=== PATIENT | female | born 1990 | race Caucasian/White ===

== ENCOUNTER 2025-03-17 11:00 | Outpatient (AMB) | payer BC, SELFPAY ==
--- NOTE | 2025-03-17 11:04 | A.OFFPC_ITS ---
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 Allergies amoxicillin [AMOXICILLIN] Allergy (Unknown, Verified 03/17/25 11:12) liana VAUGHN Medication List - Last Reconciled 03/17/25 by PERLA Monreal No Known Home Meds Tobacco use date assessed: 03/17/25 Dental Screening Dental Screen Date: 03/17/25 Did you have a dental visit in the last 12 months?: Yes Did you have a dental problem in the last 6 months where you did not have access to dental care?: No Was dental information given to patient?: Patient has dentist HPI HPI Comments History of Present Illness Details 35 y/o F with recurrent nasal MRSA, fami ly hx of melanoma (Dad), family hx breast ca (PGM 70's & maternal aunts) Social: , 3 children; Works as [employer] Surgery: None Family hx: Dad prediabetes, Melanoma, Grandparents with HLD and PreDM, MGF dementia & etoh; PGF prostate ca, pacemaker; MGM , needed pacer before Health Maintenance Tdap 2019 Flu Declined Pap 2020 Specialist: PET TRAINER History of Present Illness Here today as a new patient to [facility] and for CPE: c/o of recurrent nasal MRSA. - She experiences episodes of recurrent impetigo on her nose, typically managed with mupirocin cream. Oral medications have been used in more severe cases.. - Reports stable mood with no anxiety or depression. - Optho: eye exam 2 years ago, mild asti gmatism, does not need RX but has PRN Skin: Would like to see Derm, family hx of Melonoma (dad) - Family history is significant for nga noma, breast cancer, prostate cancer, diabetes, and hypercholesterolemia. Dementia and alcoholism are noted on the maternal side. - The patient is currently not on daily vitamin supplementation. - Works in [employer] and [employer] and is a mother to three children. Past Surgical History - No history of surgical procedures. Family History - Father: Melanoma, prediabetes, hyperch olesterolemia. - Maternal grandfather: Dementia, alcoho lism. - Paternal grandfather: Prostate cancer. - Maternal grandmother: Unspecified bloo d disease, multiple maternal aunts with breast cancer, one diagnosed in her 40s, in her 50s. - No known genetic predisposition after testing for breast cancer gene mutations was conducted. Social History - Employment: Profession in [employer]. - Family Status: Mother of three childre n aged four, seven, and nine. - Denies smoking, alcohol, or drug use. Health Maintenance - Tetanus vaccination administered in . - No recent influenza vaccination; last received approximately three or four years ago. - Pap smear history: Last conducted appr oximately three years ago; prior results were negative. - No current vitamin supplementation; di scussion on adding women?s multivitamin. Review of Systems - Skin: Reports recurrent impetigo on nose. - Eyes: Denies vision problems currently , but previously diagnosed with mild astigmatism. - Psychological: Denies anxiety and depr ession. - General: Denies fatigue. - Cardiovascular: Denies chest pain or p alpitations. - Respiratory: Denies shortness of breat h. - Gastrointestinal: Denies nausea or abd ominal pain. - Genitourinary: Denies abnormal changes in menstruation. Physical Exam General: Well developed, well nourished, in no acute distress. Appears stated age. Head: Normocephalic, atraumatic. Eyes: Pupils are equal, round and reactive to light and accommodation. Conjunctivae are clear. Ears: TMs clear AU, EACS WNL. Nose: Patent, without discharge. Recurrent impetigo noted on the nose, starting to get red on the left side. Neck: Supple, no adenopathy or thyromegaly. No swollen lymph nodes noted upon examination. Breast: Edu on SBE. Referral to [facility] for high-risk breast program. Lungs: Clear to auscultation bilaterally. No rales, rhonchi or wheeze noted. Good air flow in all jaramillo. Heart: Regular rate and rhythm. No murmurs, click, rubs or gallops are noted. Abdomen: Bowel sounds present in all quadrants. The abdomen is soft, nontender, with no masses or organomegaly noted. No hernias are noted. : Deferred. Reviewed recommendations for routine PET TRAINER. Active with PET TRAINER for routine women's health. Pulses: Peripheral pulses are equal and palpable bilaterally. Extremities: No clubbing, cyanosis nor edema is noted. Neurologic: Gait and station normal. Cranial Nerves 2-12 intact. Motor strength grossly symmetrical and intact. No sensory loss. Balance normal. Skin: No rashes, ulcers, or lesions noted. Turgor is good. Skin color is good. Hair and nails are without abnormalities. Referral to [facility] due to family history of melanoma. Psych: Normal eye contact, affect and mood appropriate, and normal interactions. Patient is alert and appropriate to context. Mood looks good, no anxiety, no depression. Results - Labs and tests: Routine blood work for anemia, vitamin D, thyroid function, and kidney function was ordered. - No imaging results discussed. Discussion Notes During today?s visit, I discussed with the patient the management of her recurrent nasal MRSA with mupirocin, ensuring refills were prescribed. Additionally, we reviewed her vaccinations and the need for routine health maintenance screenings, including prioritizing dermatology follow-up due to family history of melanoma and discussion on referring to a high-risk breast cancer program. We addressed the importance of annual wellness check-ins and the coordination through the clinic?s portal for efficiency. Consent was reviewed in detail with the patient, emphasizing the need for follow-ups based on her family history and current health status. Assessment and Plan 1. Recurrent Impetigo Managed recurrent impetigo on the nose with mupirocin cream. Mupirocin will be utilized with early onset of symptoms. 2. Nasal Methicillin-Resistant Staphyloc occus Aureus (MRSA) Suspected MRSA will continue to be managed with intranasal mupirocin, given its recurrent nature. 3. High risk Breast - refer to [facility] breast group 4. Refer to derm Patient Instructions - Use mupirocin cream inside your nose a t the onset of symptoms. - Schedule and attend dermatology appoin tments at [facility] due to family history of melanoma. - Referral to high-risk breast cancer marilyn rogers at [facility]. - Perform regular self-breast exams and report any changes. - Complete annual blood work to monitor kidney function, thyroid levels, and screen for diabetes and anemia. - Utilize the patient portal for communi cation with the office. - Take a women?s multivitamin daily. - RTO 1 year CPE, sooner PRN Consent Patient was informed and verbally consented to the use of an ambient scribe for clinic note documentation during this visit. An additional 25 minutes was spent addressing the problem(s) noted at todays visit. This includes time spent before the visit reviewing the chart, time spent during the visit, and time spent after the visit on documentation reviewing laboratory results, diagnostic imaging, medications, performing a medically necessary evaluation, counseling on diagnoses, care coordination, ordering appropriate tests, ordering appropriate medications, review of tests performed by other providers, reporting test results with the patient, communication with other healthcare providers. [facility] Medical History (Updated 03/17/25 @ 11:35 [facility] No pertinent past medical history Surgical History (Updated 03/17/25 @ 11:13 by Marty Olivo MA) No pertinent past surgical history Family History (Updated 03/17/25 @ 11:16 by Marty Olivo MA) Father High cholesterol Diabetes Cancer Paternal Grandmother High cholesterol Breast cancer Maternal Grandfather High cholesterol Substance abuse Dementia Maternal Grandmother Diabetes Paternal Grandfather Diabetes Prostate cancer Social History (Updated 03/17/25 @ 11:12 by Marty Olivo MA) Household Members: Spouse and Children Housing: House Are you a primary critical care clinical nurse specialist to a significant other at home: Yes Do you presently have visiting nurse or other home services: No Alcohol intake: current Alcohol intake frequency: a few times a month Patient Tobacco Use Status: Never used Tobacco e-Cigarette/Vaping Use: Never Used Second Hand Smoke Exposure: No Current occupational status: employed Current occupation: speech language Cognitive needs: No Hearing needs: No Vision needs: No Questionnaire PHQ-9 Over the last 2 weeks, how often have you been bothered by any of the following problems? 1. Little interest or pleasure in doing things: not at all 2. Feeling down, depressed, or hopeless: not at all 3. Trouble falling or staying asleep, or sleeping too much: not at all 4. Feeling tired or having little energy: not at all 5. Poor appetite or overeating: not at all 6. Feeling bad about yourself - or that you are a failure or have let yourself or your family down: not at all 7. Trouble concentrating on things, such as reading the newspaper or watching television: not at all 8. Moving or speaking so slowly that other people could have noticed. Or the opposite - being so fidgety or restless that you have been moving around a lot more than usual: not at all 9. Thoughts that you would be better off or of hurting yourself in some way: not at all Total score: 0 Depression Screening Interpretation: Negative Depression Screening Done: Yes 24194 - PHQ-9 Billing: Yes Source: Developed by Drs. Eric Pena, Padmini Luis, Chan Phillips and colleagues, with an educational evaristo from [employer]. Thrive Questionnaire Date Thrive assessed: 03/17/25 I am a: Patient What is your living situation today?: I have a steady place to live Within the past 12 months, did the food you bought not last and you didn't have the money to get more?: Never true Within the past 12 months, did you worry whether your food would run out before you got money to buy more?: Never true Do you have trouble paying for medicines?: No Do you have trouble getting transportation to medical appointments?: No Do you have trouble paying your heating and electricity bill?: No Do you have trouble taking care of your child, family member or friend?: No Do you have trouble with day-to-day activities such as bathing, preparing meals, shopping, managing finances, etc.?: No Are you currently unemployed and looking for a job?: No Are you interested in more education?: Yes Please select the resources that you would like help with: None Currently or been in a relationship where the following occur: No concerns reported THRIVE Score: 0 AUDIT C Alcohol Use Questionnaire (AUDIT-C) 1. How often do you have a drink containing alcohol?: 2-4 times a month 2. How many drinks containing alcohol do you have on a typical day when you are drinking?: 3 or 4 3. How often do you have six or more drinks on one occasion?: Never Total Score: 3 Score Reviewed/Action Taken: Yes OVI-7 AMB Questionnaire OVI-7 Date OVI - 7 assessed: 03/17/25 Feeling nervous, anxious, or on edge: 0 = Not at all Not being able to stop or control worryin = Not at all Worrying too much about different things: 0 = Not at all Trouble relaxin = Not at all Being so restless that it is hard to sit still: 0 = Not at all Becoming easily annoyed or irritable: 0 = Not at all Feeling afraid as if something awful might happen: 0 = Not at all Total OVI-7 score (0-4 normal; 5-9 mild; 10-14 moderate; 15-21 severe): 0 Source: Developed by Drs. Eric Pena, Pdamini Luis, Chan Phillips and colleagues, with an educational evaristo from [employer]. OVI-7 Assessment Billing OVI-7 Assessment Tool: OVI-7 Assessment 64639 Physical exam (Primary Care) Vital Signs: Last Vital Signs Temp 97.8 F 03/17/25 11:08 Pulse 72 03/17/25 11:08 Resp 12 03/17/25 11:08 BP 110/70 03/17/25 11:08 Pulse Ox 99 03/17/25 11:08 Oxygen Delivery Method Room Air 03/17/25 11:08 BMI result Body Mass Index 29.2 Tobacco/Smoking Status: Tobacco use Status Tobacco use date assessed 03/17/25 03/17/25 11:10 Patient Tobacco Use Status Never used Tobacco 03/17/25 11:12 e-Cigarette/Vaping Use Never Used 03/17/25 11:12 PHQ-9: PHQ-9 Score PHQ-9: Total score 0 03/17/25 11:16 Depression Screening Interpretation: Negative Thrive Assessment: Date of Thrive Assessment Date Thrive assessed 03/17/25 03/17/25 11:04 Currently or been in a relationship where the following occur: No concerns reported Coding Level of Care Code Est Pt Level 3 (13185) New Pt Prev Care 18-39yr(30701 Diagnoses Encounter for general adult medical examination with abnormal findings Z00.01 Family history of melanoma Z80.8 Family history of breast cancer Z80.3 Laboratory exam ordered as part of routine general medical examination Z00.00 Encounter to establish care Z76.89 Additional Codes OVI-7 Assessment Billing - OVI-7 Assessment Tool: OVI-7 Assessment 34902 ([id number]) PHQ-9 - 33637 - PHQ-9 Billing: Yes ([id number]) Assessment & Plan Assessment & Plan (1) Encounter for general adult medical examination with abnormal findings: Onset Date: ~02/2025 Code(s): Z00.01 - Encounter for general adult medical examination with abnormal findings Category: Medical (2) Family history of melanoma: Comment: Dad Code(s): Z80.8 - Family history of malignant neoplasm of other organs or systems Category: Medical (3) Family history of breast cancer: Comment: PGM, maternal aunts age 40's & 50s Code(s): Z80.3 - Family history of malignant neoplasm of breast Category: Medical (4) Laboratory exam ordered as part of routine general medical examination: Code(s): Z00.00 - Encounter for general adult medical examination without abnormal f indings Category: Medical (5) Encounter to establish care: Code(s): Z76.89 - Persons encountering health services in other specified circumstances Plan . Orders: Orders Complete Blood Count no Diff Today Z00.00 - Encounter for general adult medical examination without abnormal findings Ferritin Today Z00.00 - Encounter for general adult medical examination without abnormal findings Hemoglobin A1c Today Z00.00 - Encounter for general adult medical examination without abnormal findings IRON PROFILE Today Z00.00 - Encounter for general adult medical examination without abnormal findings TSH reflex Free T4 Today Z00.00 - Encounter for general adult medical examination without abnormal findings Vitamin B12 and Folate Today Z00.00 - Encounter for general adult medical examination without abnormal findings Vitamin D 25-OH Total Today Z00.00 - Encounter for general adult medical examination without abnormal findings Comprehensive Met. Panel Today Z00.00 - Encounter for general adult medical examination without abnormal findings Lipid Panel Today Z00.00 - Encounter for general adult medical examination without abnormal findings Microalbumin, Random (w Creat) Today Z00.00 - Encounter for general adult medical examination without abnormal findings Referrals Breast Surgery Referral Z80.3 - Family history of malignant neoplasm of breast Dermatology Referral Z80.8 - Family history of malignant neoplasm of other organs or systems Medications: New mupirocin calcium 2% 1 appl topical BID 15 grams 2RF Patient Instructions: Walk-In Care (Urgent Care): We Make it Easy Walk-in for urgent medical issues such as: ? Seasonal Allergies ? Insect Bites ? Cough ? Diarrhea ? Acute Asthma Attacks ? Back, Knee or Joint Pain ? Ear Infection ? Fever without a Rash ? Headaches ? Nausea ? [place], Rash or Skin Irritation ? Sore Throat ? Sports Physicals ? Vomiting Most insurances are accepted. Patients do not need to be part of the [facility] to seek care at the walk-in clinic. Locations [address] [place] [address] ? [phone] [facility] [place] Walk-In Care in [place] provides services to ages 18 and over. Open Thursday-Thursday: 8 a.m. to 5 p.m. and Thursday: 9 a.m. to 3 p.m.* *Hours may vary due to staffing availability. To confirm Walk-In Care hours in [place], please call [phone]. [address] [place] [address] ? [phone] [facility] [place] Walk-In Care in [place] provides services to ages 12 and over. Open Thursday-Thursday: 8 a.m. to 5 p.m. Hours may vary due to staffing availability. To confirm Walk-In Care hours in [place], please call [phone]. LABORATORY SERVICES: [facility] Lab ? Primary Location [address] [place] [address] Thursday through Thursday 6:00 AM ? 5:00 PM Thursday 7:00 AM ? 11:00 AM* [phone] The [facility] Lab is centrally located near the front entrance of the [facility] for easy outpatient access. Convenient parking is provided for outpatients. *Hours may vary due to staffing availability. To confirm Laboratory hours for any location, please call [phone]. Offsite Location For your convenience, we offer offsite laboratory draw stations at the following locations: [address] [place] [address] ? [address], [address] [place] [address] Thursday through Thursday 7:30 AM ? 1:00 PM* [phone] *Hours may vary due to staffing availability. To confirm Laboratory hours for any location, please call [phone]. [place] ? [address] Thursday through Thursday 6:00 AM ? 3:30 PM* Thursday 6:30 AM ? 3 PM* [phone] *Hours may vary due to staffing availability. To confirm Laboratory hours for any location, please call [phone]. [address] [facility] Thursday through Thursday 7:30 AM ? 4:00 PM* [phone] *Hours may vary due to staffing availability. To confirm Laboratory hours for any location, please call [phone]. [address] [facility] Thursday through 9:00 AM ? 4:00 PM* *Hours may vary due to staffing availability. To confirm Laboratory hours for any location, please call [phone]. Appointments are not necessary. Walk-ins are welcome. Like all the departments throughout the [facility], our Lab undergoes frequent reviews to ensure the quality and accuracy of test results, and our staff takes special pride in its status as a nationally accredited facility. Patient Portal: ONE PATIENT. ONE RECORD. BETTER CARE. [facility] has a fully integrated, cutting- edge mobile electronic health information system that has revolutionized the way we care for our patients and manage our organization. This system improves communication and coordination enabling us to provide safe, higher-quality care, and an overall positive experience for staff and patients. Our first priority, as always, is to deliver the highest quality care possible. The system is running in the background supporting that priority. This portal is for all [facility] and [facility] services and practices. If you are experiencing any technical difficulties with enrolling or logging i nto the Patient Portal please complete the [facility] Patient Portal Technical Support Form. [facility] and [facility] now offers a new secure on-line interactive tool for patients to review their health information ? ?Patient Portal. This interactive web portal will enable patients and their families to take an active role in their care by providing easy, secure access to their he alth information via the internet. The Patient Portal provides patients with instant access to their health information, including laboratory results, medications, allergies, demographic information, visit history, and more. In addition to managing their own care, parents and health care proxies with authorized consent will appreciate the ability to access the records of those individuals for whom they provide care. Please note: if you wish to gain access (Proxy) to another patient?s portal, you will be required to come to the Medical Records Department in person at [facility]. Both the patient giving proxy access and the proxy will need to provide photo identification and complete the appropriate authorization. The Patient Portal also allows track their appointments online. The [facility] Patient Portal also saves patients time by allowing them to submit updates to their demographic and contact information prior to their visits. Portal email notifications will also alert patients to any new activity on their portal, such as test results and new appointments. In order to initially enroll in the [facility] Patient Portal, you will need to enter some required information including the following: * your [facility] Medical Record number * your personal home email address * name * date of Please note: In order to enroll in the [facility] Patient Portal, we need to have your email address on file in your electronic medical record. ?The email address needs to be specific for one person (yourself) in order for your Portal enrollment to be successful. ?You can update your email address in person with our Registration staff when you are registering for a hospital visit. ?Otherwise, you will need to come to the Health Information Management (Medical Records) Department at [facility]. ?We are open from Thursday ? Thursday from 7:30 a.m. ? 4:30 p.m. ?You will be required to present a photo id. Once you have successfully enrolled in the Patient Portal, you will receive a one-time user id and password for the Portal, sent to your email address. ?This will allow you to log into the Patient Portal within 99 hrs and reset your own logon id and password, and define personal security questions. ?Once your permanent login and password have been set, you can log into the [facility] Patient Portal at any time via the blue button above or from the Portal Logon button on any page of the [facility] website. [facility] and [facility] encourage all of our patients to enroll in Patient Portal as it presents a valuable opportunity for patients and their families to actively participate in their care and stay healthy Welcome to [facility]. ?We look forward to working with you. Health screenings for women You should visit your health care provider from time to time, even if you are healthy. The purpose of these visits is to: Screen for medical issues Assess your risk for future medical problems Encourage a healthy lifestyle Update vaccinations and other preventive care services Help you get to know your provider in case of an illness Information Even if you feel fine, you should still see your provider for regular checkups. These visits can help you avoid problems in the future. For example, the only way to find out if you have high blood pressure is to have it checked regularly. High blood sugar and high cholesterol levels also may not have any symptoms in the early stages. A simple blood test can check for these conditions. There are specific times when you should see your provider or receive specific health screenings. The [place] Preventive Services Task Force publishes a list of recommended screenings. Below are screening guidelines for women ages 18 to 39. BLOOD PRESSURE SCREENING Your blood pressure should be checked at least once every 3 to 5 years if: Your blood pressure is in the normal range (top number less than 120 mm Hg and bottom number less than 80 mm Hg) You don't have risk factors for high blood pressure Ask your provider if you need your blood pressure checked more often if: The top number is 120 to 129 mm Hg or the bottom number is 70 to 79 mm Hg You have diabetes, heart disease, kidney problems, are overweight, or have certain other health conditions You have a first-degree relative with high blood pressure You are Black You had high blood pressure during a If the top number is 130 mm Hg or greater or the bottom number is 80 mm Hg or greater, this is considered stage 1 hypertension. Schedule an appointment with your provider to learn how you can reduce your blood pressure. Watch for blood pressure screenings in your area. Ask your provider if you can stop in to have your blood pressure checked. BREAST CANCER SCREENING Experts do not agree about the benefits of breast self-exams in finding breast cancer or saving lives. Talk to your provider about what is best for you. A screening mammogram is not recommended for most women under age 40. Your provider may discuss and recommend mammograms, MRI scans, or ultrasounds if you have an increased risk for breast cancer, such as: A mother or sister who had breast cancer at a young age (most often starting sc reening earlier than the age the close relative was diagnosed) You carry a high-risk genetic marker CERVICAL CANCER SCREENING Cervical cancer screening should start at age 21 years unless your provider advises otherwise. After the first test: Women ages 21 through 29 should have a Pap test every 3 years. Exoprts do not agree on whether HPV testing is recommended for this age group. Women ages 30 through 65 should be screened with either a Pap test every 3 years or the HPV test every 5 years or both tests every 5 years (called cotesting ). Women who have been treated for precancer (cervical dysplasia) should continue to have Pap tests for 20 years after treatment or until age 65, whichever is longer. If you have had your uterus and cervix removed (total hysterectomy), and you have not been diagnosed with cervical cancer or precancer (high grade cervical neoplasia), you do not need cervical cancer screening. CHOLESTEROL SCREENING Cholesterol screening should begin at: Age 45 for women with no known risk factors for coronary heart disease Age 20 for women with known risk factors for coronary heart disease Repeat cholesterol screening should take place: Every 5 years for women with normal cholesterol levels More often if changes occur in lifestyle (including weight gain and diet) More often if you have diabetes, heart disease, kidney problems, or certain other conditions DIABETES SCREENING You should be screened for diabetes starting at age 35 and then repeated every 3 years if you have no risk factors for diabetes. Screening may need to start earlier and be repeated more often if you have other risk factors for diabetes, such as: You have a first degree relative with diabetes. You are overweight or have obesity. You have high blood pressure, prediabetes, or a history of heart disease. Screening for diabetes should be done if you are planning to become and you are overweight and have other risk factors such as high blood pressure. DENTAL EXAM Go to the dentist once or twice every year for an exam and cleaning. Your dentist will evaluate if you need more frequent visits. EYE EXAM Have an eye exam every 5 to 10 years before age 40. If you have vision problems, have an eye exam every 2 years or more often if recommended by your provider. You should have an eye exam that includes an examination of your retina (back of your eye) at least every year if you have diabetes. IMMUNIZATIONS Commonly needed vaccines include: Flu shot: get one every year. COVID-19 vaccine: ask your provider what is best for you. Tetanus-diphtheria and acellular pertussis (Tdap) vaccine: have one at or after age 19 as one of your tetanus-diphtheria vaccines if you did not receive it as an adolescent. Tetanus-diphtheria: have a booster (or Tdap) every 10 years. Varicella vaccine: receive 2 doses if you never had chickenpox or the varicella vaccine. Hepatitis B vaccine: receive 2, 3, or 4 doses, depending on your exact circumstances. Measles, mumps, and rubella (MMR) vaccine: receive 1 to 2 doses if you are not already immune to MMR. Your provider can tell you if you are immune. Ask your provider about the human papillomavirus (HPV) vaccine if: You have not received the HPV vaccine in the past You have not completed the full vaccine series (you should catch up on this shot) Ask your provider if you should receive other immunizations if you have certain health problems that increase your risk for some diseases such as pneumonia. INFECTIOUS DISEASE SCREENING Women who are sexually active should be screened for chlamydia and gonorrhea up until age 25. Women 25 years and older should be screened for chlamydia and gonorrhea if at high risk. Screening for hepatitis C: All adults ages 18 to 79 should get a one-time test for hepatitis C. people should be screened at every . Screening for human immunodeficiency virus (HIV): All people ages 15 to 65 should get a one-time test for HIV. Depending on your lifestyle and medical history, you may also need to be screened for infections such as syphilis and HIV, as well as other infections. PHYSICAL EXAM All adults should visit their provider from time to time, even if they are healthy. The purpose of these visits is to: Screen for disease Assess your risk of future medical problems Encourage a healthy lifestyle Update your vaccinations and other preventive care services Maintain a relationship with a provider in case of an illness Your height, weight, and BMI should be checked at every exam. During your exam, your provider may ask you about: Depression and anxiety Diet and exercise Alcohol and tobacco use Safety issues, such as using seat belts, smoke detectors, and intimate partner violence Your medicines and risk for interactions SKIN SELF-EXAM Your provider may check your skin for signs of skin cancer, especially if you're at high risk, such as if you: Have had skin cancer before Have close relatives with skin cancer Have a weakened immune system OTHER SCREENING Talk with your provider about colon cancer screening if you have a strong family history of colon cancer or polyps, or if you have had inflammatory bowel disease or polyps yourself. Routine bone density screening of women under 40 is not recommended.
[2025-03-17 11:08] VITALS: BP 110/70; PULSE 72; RESP 12; TEMP 36.6; O2SAT 99; BMI 29.2
--- OUTSIDE RECORDS SUMMARY | 2025-03-17 12:06 | XMS_ITS | Data Portability ---
Author Organization [facility] [address] Address [address] [place] [address] Care Team Providers Care Regional Vice President Life Sales Name Role Phone [facility] Primary Care Provi tyra Assessment No assessment recorded. Plan of Treatment Reminders Order Date Submit Date Provider Last Modified By Organization Details Last Modified Time Details Appointments None recorded. Lab None recorded. Referral None recorded. Procedures None recorded. Surgeries None recorded. Imaging None recorded. Medication Orders Zithromax Z-Rob 250 mg tablet 2023 024 [facility][id number], [address] [place], [address], 12:02:09 Patient TargetsNo targets recorded. Patient Instructions Encounter Date Encounter Id Patient Instructions Last Modified By Organization Details Last Modified Time 09/01/2024 [id number] Follow up with your PCP in 4 weeks for an ear re-check [email or web address] Not available 09/01/2024 12:01:27 Reason for Referral None Reported. Problems No Known Problems Medical Equipment None Reported. Allergies Allergen ID Allergen Name Allergen Category Reaction Reaction Severity Criticality Documentation Date Start Date Code Code System Note Provider Name and Address Organization Details Recorded Time 413598 amoxicill in medicatio n hives Not available Not available 09/01/2024 723 [facility] 09:55:53 Medications Name Sig Start Date Stop Date Status Note LastModified by Organization Details LastModified Time Zithromax Z-Rob 250 mg tablet TAKE 2 TABLETS (500 MG) BY ORAL ROUTE ONCE DAILY FOR 1 DAY THEN 1 TABLET (250 MG) BY ORAL ROUTE ONCE DAILY FOR 4 DAYS 024 active Not Available Not Available Not Avai lable Vitals Date Recorded Body height Body mass index (BMI) Body weight Oxygen saturation Oxygen saturation in Arterial blood by Pulse oximetry Heart rate Body temperature Pain severity - 0-10 verbal numeric rating [Score] - Reported Respiratory rate Systolic blood pressure Diastolic blood pressure Provider Name and Address Organization Details Last Updated DateTime 162.56 cm 29.2 kg/m2 23201.7 g 99 % 99 % 90 /min 98.4 [degF] 7 16 /min 105 mm[Hg] 74 mm[Hg] Paulie Briscoe PA [facility] 10:00:40 Social History Question Answer Notes LastModified by Organizat ion Details LastModified Time Tobacco Smoking Status Never Smoker Paulie feliz PA [employer] [facility] 09/01/2024 09:56:38 What Is Your Level Of Alcohol Consumption? Occasional Occ Information not available 09/01/2024 Have You Had A Flu Shot This Season? No Information not available 09/01/2024 If No, Would You Like A Flu Shot Today? No Information not available 09/01/2024 Do You Use Any Illicit Or Recreational Drugs? No Information not available 09/01/2024 Have You Recently Traveled Abroad? No Information not available 09/01/2024 Do You Or Have You Ever Used Any Other Forms Of Tobacco Or Nicotine? No Information not available 09/01/2024 Sex: Unknown Functional Status None recorded. Mental Status None recorded. Family History Relationship Description Onset Age of this Age Resolved Age Notes LastModified by Organization Details LastModified Time Father No current problems or disability Not available 09/01 09:56:17 Mother No current problems or disability Not available 09/01 09:56:17 Medical History No medical history recorded. Gynecological History Statement/Question Response Date of LMP 08/20/2024 Is there any chance of ? No LMP Approximate Obstetrics History GPAL:G 0 P 0 0 0 0 Past Encounters Encounter ID Performer Location Encounter Start Date Encounter Closed Date Diagnosis/Indication Diagnosis SNOMED-CT Code Diagnosis ICD10 Code Diagnosis Note [id number] [address] [address] 10/05/2021 09:49:04 10/05/2021 11:07:13 [id number] CANDY MAST MD [address] [address] 09/01/2024 09:22:54 09/01/2024 12:04:05 Bullous myringitis of left ear [id number] H73.012 You may take ibuprofen as directed on package for the appropriat e age range. Health Concerns Section Related Observation LastModified by Organization Detai ls LastModified Time None Recorded Concern Status LastModified by Organization Details LastModified Time None Recorded Advance Directives Directive None Recorded Payers Encounter Date Sequence Insurance Name Policy Number Policy Tyler Covered Member ID Tyler Member ID Guarantor Name 10/05/2021 1 [facility] [id number] Lexi E Gramolini [id number] Lexi Gramolini 09/01/2024 1 [facility]: [facility] ([facility] [id number] Lexi E Gramolini [id number] Lexi Gramolini Notes Date Note Type Note Provider Name and Address Organization Details Recorded Time 09/01/2024 text/html 34 Y F Pt c/o left ear pain x 3 days. Pt woke up 2 days ago with bilateral neck pain and h/a. Son has URI illness. CANDY MAST MD [address] [place] [address] [place], [address], [place] - [facility] 09/21/2024 15:17:13 OBGyn Episode No OBEpisode recorded.
--- OUTSIDE RECORDS SUMMARY | 2025-03-17 12:06 | XMS_ITS | Data Portability ---
Author Organization [facility] Address [address] [place] [address] Assessment No assessment recorded. Plan of Treatment Reminders Order Date Submit Date Provider Last Modified By Organization Details Last Modified Time Details Appointments None record ed. Lab None record ed. Referral None record ed. Procedures None record ed. Surgeries None record ed. Imaging None record ed. Medication Orders None record ed. Patient TargetsNo targets recorded. Patient InstructionsNo instructions recorded. Reason for Referral None Reported. Medical Equipment None Reported. Vitals None Recorded Social History None recorded. Functional Status None recorded. Mental Status None recorded. Family History Nothing Reported. Medical History No medical history recorded. Gynecological HistoryNo gynecological history recorded. Obstetrics History GPAL:G 0 P 0 0 0 0 Past Encounters Encounter ID Performer Location Encounter Start Date Encounter Closed Date Diagnosis/Indication Diagnosis SNOMED-CT Code Diagnosis ICD10 Code Diagnosis Note [id number] [address] [address] [place] [address] 10/29/2021 08:47:12 10/29/2021 13:51:35 Health Concerns Section Related Observation LastModified by Organization Detai ls LastModified Time None Recorded Concern Status LastModified by Organization Details LastModified Time None Recorded Advance Directives Directive None Recorded Payers Encounter Date Sequence Insurance Name Policy Number Policy Tyler Covered Member ID Tyler Member ID Guarantor Name 10/29/2021 1 [facility]: [facility] [id number] Lexi Hernandez [id number] Lexi Garcia OBGyn Episode No OBEpisode recorded.
--- OUTSIDE RECORDS SUMMARY | 2025-03-17 12:06 | XMS_ITS | Clinical Summary ---
Author Organization [facility] it Address [address] [place] [address] Care Team Providers Care Loss Prevention Supervisor Name Role Phone Tundeansley Fransiscawilfredo Primary Care Provider [phone] Surgical History Surgery Date Site/Laterality Comments WISDOM TOOTH EXTRACTION PROCEDURE: HISTORICAL WISDOM TEETH EXTRACTION Medical History Medical History Date Comments Impetigo DX:Impetigo; COM MENT: on nose, occurs about once per year; responds to topical tx Herpes simplex 11/29/2010 DX:Herpes simple x Family History Medical History Relation Name Comments Breast cancer Aunt dx'd in 40s No Known Problems Brother 1 Paulie No Known Problems Brother 2 Vincent No Known Problems Brother 3 Stuart No Known Problems Daughter 1 Brenda No Known Problems Daughter 2 Jada Melanoma Father doing well Alcohol abuse Maternal Grandfather Dementia Maternal Grandfather Diabetes Maternal Grandfather Diabetes Maternal Grandmother Other: kidney disease Maternal Grandmother No Known Problems Mother Diabetes Paternal Grandfather Prostate cancer Paternal Grandfather Breast cancer Paternal Grandmother age 85 No Known Problems Son Gunnar Cancer of Small Bowel Neg Hx Colon cancer Neg Hx Kidney cancer Neg Hx Ovarian cancer Neg Hx Pancreatic cancer Neg Hx Uterine cancer Neg Hx Relation Name Status Comments Aunt Alive Brother 1 Paulie Alive healthy Brother 2 Vincent Alive Brother 3 Stuart Alive Daughter 1 [place] Alive Daughter 2 Jada Alive Father Alive Maternal Grandfather Maternal Grandmother Alive Mother Alive healthy Paternal Grandfather Alive Paternal Grandmother dm; dep ressive episode, cancer of breast age 80s Son Gunnar Alive Social History Tobacco Use Types Packs/Day Years Used Date Smoking Tobacco: Never Smokeless Tobacco: Never Alcohol Use Standard Drinks/Week Comments Yes 0 (1 standard drink = 0.6 oz pur e alcohol) Comments Unknown Sex and Gender Information Value Date Recorded Sex Assigned at Not on file Legal Sex Female 6:28 PM EST Gender Identity Not on file Sexual Orientation Not on file Obstetrics History Last Filed Vital Signs Vital Sign Reading Time Taken Comments Blood Pressure 98/60 12/14/2023 10:07 AM EST Pulse 88 12/14/2023 10:07 AM EST Temperature - - Respiratory Rate - - Oxygen Saturation - - Inhaled Oxygen Concentration - - Weight 76.5 kg (168 lb 9.6 oz) 12/14/2023 10:07 AM EST Height 162.6 cm (5' 4 ) 12/14/2023 10:07 AM EST Body Mass Index 28.94 12/14/2023 10:07 AM EST Plan of Treatment Health Maintenance Due Date Last Done Comments HPV Vaccines (2 - 3-dose series) 05/11/2008 04/13/2008 Cervical Cancer Screening: P ap Smear 2010 Depression Screening 11/01/2022 HIV Screening 11/01/2022 Hepatitis C Screening 11/01/2022 Social Influencers of Health Screening 11/01/2022 COVID-19 Vaccine (3 - 2023-2 5 season) 2024 02/09/2021, 01/01/2021 Influenza Vaccine (Season Ended) 2025 DTaP,Tdap,and Td Vaccines (3 - Td or Tdap) 04/30/2027 04/30/2017, 03/02/2007 Hepatitis B Vaccines Completed 07/26/1999, 03/13/1999, 01/24/1999 MMR Vaccines Completed 07/26/1999, 04/23/1990 Meningococcal ACWY Vaccine Completed 03/02/2007 HIB Vaccines Aged Out No longer eligi ble based on patient's age to complete this topic Hepatitis A Vaccines Aged Out No long er eligible based on patient's age to complete this topic IPV Vaccines Aged Out No longer eligi ble based on patient's age to complete this topic Meningococcal B Vaccine Aged Out No l onger eligible based on patient's age to complete this topic Pneumococcal Vaccine: Pediatrics (0 to 5 Years) and At-Risk Patients (6 to 64 Years) Aged Out No longer eligible b ased on patient's age to complete this topic RSV Immunization Patients Under 20 months Aged Out No longer eligible b ased on patient's age to complete this topic Varicella Vaccines Aged Out No longer eligible based on patient's age to complete this topic Care Teams Loss Prevention Supervisor Relationship Specialty Start Date End Date Mikael Carbone DO PCP - General Internal Medicine 08/07/22
== END 2025-03-17 11:35 | disposition home or self-care (01) ==
LOC: HO.HMCFM 11:01
PROVIDERS: PCP Nurse Practitioner Family; Visit Provider Nurse Practitioner Family
DX: Z00.00 Encounter for general adult medical examination without abnormal findings (principal); L01.00 Impetigo, unspecified; Z80.8 Family history of malignant neoplasm of other organs or systems; Z80.3 Family history of malignant neoplasm of breast; Z76.89 Persons encountering health services in other specified circumstances

== ENCOUNTER → 2025-03-17 11:00 | Outpatient (BNVA) | payer BC, SELFPAY | PROVIDERS: PCP Nurse Practitioner Family; Visit Provider Nurse Practitioner Family | DX: Z00.00 Encounter for general adult medical examination without abnormal findings (principal); Z76.89 Persons encountering health services in other specified circumstances; Z80.8 Family history of malignant neoplasm of other organs or systems; Z80.3 Family history of malignant neoplasm of breast | CPT/HCPCS: 96127 ==

== ENCOUNTER 2025-03-17 11:43 | Outpatient (REF) | payer BC, SELFPAY ==
--- OUTSIDE RECORDS SUMMARY | 2025-03-17 12:45 | XMS_ITS | Clinical Summary ---
Author Organization [facility] it Address [address] [place] [address] Care Team Providers Care Salt Maker Name Role Phone Tundeansley Fransiscawilfredo Primary Care Provider [phone] Surgical History Surgery Date Site/Laterality Comments WISDOM [...] Alive Brother 3 Stuart Alive Daughter 1 [place] Alive Daughter 2 Jada Alive Father Alive [...] age to complete this topic Care Teams Salt Maker Relationship Specialty Start Date End Date Mikael Carbone DO PCP - General Internal Medicine 08/07/22
[2025-03-17 14:33] LABS: Hematocrit 40.1 % (37.0-47.0); Hemoglobin 13.3 g/dl (12.0-16.0); Mean Corpuscular HGB Conc 33.2 g/dl (31.0-35.0); Mean Corpuscular Hemoglobin 29.4 pg (27.0-33.0); Mean Corpuscular Volume 88.7 fL (80.0-98.0); Mean Platelet Volume 9.3 fL (9.4-12.3); Platelet Count 292 X10*3/uL (160-400); Red Blood Count 4.52 X10*6/uL (4.20-5.50); Red Cell Distribution Width 12.8 % (11.0-16.0); White Blood Count 4.9 X10*3/uL (4.8-10.8)
[2025-03-17 14:49] LABS: Estimated Average Glucose 100 mg/dL; Hemoglobin A1C 114.5635 umol/L; Hemoglobin A1c % 5.1 % (<6.0); Total Hemoglobin (HGBA1C) 3540.2193 umol/L
[2025-03-17 15:21] LABS: Folate 12.3 ng/mL (> or = 4.0); Vitamin B12 471 pg/mL (200-900)
[2025-03-17 15:35] LABS: Alanine Aminotransferase 26 U/L (0-31); Albumin Level 4.6 g/dL (3.5-5.0); Anion Gap 13 (12-20); Aspartate Amino Transferase 49 U/L (5-31); Bilirubin Total 0.6 mg/dL (0.0-1.0); Blood Urea Nitrogen 12 mg/dL (9-16); Calcium 9.3 mg/dL (8.4-10.2); Carbon Dioxide 25 mmol/L (22-29); Chloride 106 mmol/L (96-108); Cholesterol 157 mg/dL (<200); Estimated Glomerular Filt Rate > 60; Ferritin 18 ng/mL (10-122); Glucose Random 74 mg/dL (60-115); HDL Cholesterol 55 mg/dL (>40); Iron 138 mcg/dL (30-160); LDL Cholesterol Calculated 87 mg/dL (<100); Percent Iron Saturation 40 % (15-50); Sodium 140 mmol/L (135-145); Total Iron Binding Capacity 347 mcg/dL (228-428); Total Protein 7.7 g/dL (6.5-8.0); Triglycerides 79 mg/dL (<150); Unsaturated Iron Binding 209 ug/dL; Vitamin D 25-OH Total 32.6 ng/mL (>30)
[2025-03-17 19:09] LABS: Alkaline Phosphatase 55 U/L (39-117)
== END 2025-03-17 11:44 | disposition home or self-care (01) ==
LOC: HO.WFDLDS 11:43
PROVIDERS: Visit Provider Nurse Practitioner Family
DX: Z00.00 Encounter for general adult medical examination without abnormal findings (principal); Z13.1 Encounter for screening for diabetes mellitus; Z13.6 Encounter for screening for cardiovascular disorders; D64.9 Anemia, unspecified; R79.89 Other specified abnormal findings of blood chemistry
CPT/HCPCS: 36415; 80053; 80061; 82306; 82607; 82728; 82746; 83036; 83540; 84443; 85027